=== PATIENT | male | born 1995 | race Caucasian/White ===

== ENCOUNTER 2023-10-11 13:30 | Outpatient (AMB) | payer BC, SELFPAY ==
[2023-10-11 13:31] VITALS: BP 118/82; PULSE 62; O2SAT 99; BMI 20.9
--- NOTE | 2023-10-11 13:31 | MHC.PC.OV ---
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 Allergies No Known Allergies Allergy (Verified 10/11/23 13:31) Medication List - Last Reconciled 10/11/23 by Radha Augustine MD ashsarahidha root extract mg PO BID cholecalciferol (vitamin D3) 10 mcg PO DAILY multivitamin 1 tab PO DAILY Tobacco use date assessed: 10/11/23 Dental Screening Dental Screen Date: 10/11/23 Did you have a dental visit in the last 12 months?: Yes Did you have a dental problem in the last 6 months where you did not have access to dental care?: No Was dental information given to patient?: Patient has dentist HPI 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 feeling anxious a lot. asking for beta blockers for performance anxiety. problem with winter anxiety PFSH Family History (Updated 10/11/23 @ 14:08 by Radha Augustine MD) Maternal Grandfather Pancreatic cancer Social History (Updated 10/11/23 @ 14:08 by Radha Augustine MD) Housing: House Alcohol intake: current Comment: 2x a week 1 beer Patient Tobacco Use Status: Never used Tobacco service: No Current occupational status: employed Cognitive needs: No Hearing needs: No Vision needs: No Questionnaire PHQ-9 Over the last 2 weeks, how often have you been bothered by any of the following problems? 1. Little interest or pleasure in doing things: not at all 2. Feeling down, depressed, or hopeless: several days 3. Trouble falling or staying asleep, or sleeping too much: not at all 4. Feeling tired or having little energy: several days 5. Poor appetite or overeating: not at all 6. Feeling bad about yourself - or that you are a failure or have let yourself or your family down: several days 7. Trouble concentrating on things, such as reading the newspaper or watching television: not at all 8. Moving or speaking so slowly that other people could have noticed. Or the opposite - being so fidgety or restless that you have been moving around a lot more than usual: not at all 9. Thoughts that you would be better off or of hurting yourself in some way: not at all Total score: 3 Depression Screening Interpretation: Positive Depression Screening Done: Yes Source: Developed by Drs. Javi Cárdenas, Eemly Walker, Laurent Marie and colleagues, with an educational jose from [employer]. Thrive Questionnaire Date Thrive assessed: 10/11/23 I am a: Patient What is your living situation today?: I have a steady place to live Within the past 12 months, did the food you bought not last and you didn't have the money to get more?: Never true Within the past 12 months, did you worry whether your food would run out before you got money to buy more?: Never true Do you have trouble paying for medicines?: No Do you have trouble getting transportation to medical appointments?: No Do you have trouble paying your heating and electricity bill?: No Do you have trouble taking care of your child, family member or friend?: No Do you have trouble with day-to-day activities such as bathing, preparing meals, shopping, managing finances, etc.?: No Are you currently unemployed and looking for a job?: No Are you interested in more education?: No Please select the resources that you would like help with: None THRIVE Score: 0 AUDIT C Alcohol Use Questionnaire (AUDIT-C) 1. How often do you have a drink containing alcohol?: 2-4 times a month 2. How many drinks containing alcohol do you have on a typical day when you are drinking?: 1 or 2 3. How often do you have six or more drinks on one occasion?: Never Total Score: 2 TITA-7 AMB Questionnaire TITA-7 Date TITA - 7 assessed: 10/11/23 Feeling nervous, anxious, or on edge: 1 = Several days Not being able to stop or control worryin = Several days Worrying too much about different things: 1 = Several days Trouble relaxin = Several days Being so restless that it is hard to sit still: 1 = Several days Becoming easily annoyed or irritable: 1 = Several days Feeling afraid as if something awful might happen: 1 = Several days Total TITA-7 score (0-4 normal; 5-9 mild; 10-14 moderate; 15-21 severe): 7 Source: Developed by Drs. Javi Cárdenas, Emely Walker, Laurent Marie and colleagues, with an educational jose from [employer]. Physical exam (Primary Care) Vital Signs: Last Vital Signs Pulse 62 10/11/23 13:31 BP 118/82 10/11/23 13:31 Pulse Ox 99 10/11/23 13:31 Oxygen Delivery Method Room Air 10/11/23 13:31 BMI result Body Mass Index 20.9 Tobacco/Smoking Status: Tobacco use Status Tobacco use date assessed 10/11/23 10/11/23 13:32 Patient Tobacco Use Status Never used Tobacco 10/11/23 13:32 PHQ-9: PHQ-9 Score PHQ-9: Total score 3 10/11/23 13:43 Depression Screening Interpretation: Positive Thrive Assessment: Date of Thrive Assessment Date Thrive assessed 10/11/23 10/11/23 13:32 Const General: alert; No acute distress Eyes Conjunctivae: conjunctivae normal Resp Auscultation: clear to auscultation bilaterally Cardio Rate: regular rate Rhythm: regular rhythm GI Inspection: Yes normal to inspection Extrem General: Yes normal to inspection and No edema Office Procedures Flu Questionnaire Does the patient have a severe egg allergy?: No Does the patient have severe life threatening allergies?: No Does the patient have a fever or illness today?: No Has the patient ever had Guillain-[place] Syndrome?: No Has the patient ever had any past reaction to a flu shot?: No Immunizations flu vacc [id number] 6mos up(PF) 60 mcg(15 mcgx4)/0.5 mL IM syringe Performing Provider: Radha Augustine MD [facility] Administered by: DANA Cao on 10/11/23 13:49 Dose Route Admin Location Dispensed Lot Number Expiration Date [employer] Attendant 0.5 mL IM Left Deltoid 0.5 mL [id number] 10/11/23 83435-120-31 [employer] VIS Given Date VIS Provided VIS Publication Date 10/11/23 Single Vaccine 21 Eligibility Eligibility Date Funding Source Not VFC Eligible 10/11/23 Private Assessment and Plan Assessment & Plan (1) Social anxiety disorder: Code(s): F40.10 - Social phobia, unspecified Plan: Propranolol medication sent in and discussed about side effects to monitor. (2) Alopecia: Code(s): L65.9 - Nonscarring hair loss, unspecified Plan: Blood work requested and referral to dermatology done. (3) Seasonal affective disorder: Code(s): F33.8 - Other recurrent depressive disorders Plan: Blood work requested and discussed about options. Light therapy, counseling and medication Orders: Orders Thyroid Stimulating Hormone Today F40.10 - Social phobia, unspecified Influenza [id number] Immunization Today Z23 - Encounter for immunization Complete Blood Count Auto Diff Today F40.10 - Social phobia, unspecified Comprehensive Met. Panel Today F40.10 - Social phobia, unspecified Free T4 (Free Thyroxine) Today F40.10 - Social phobia, unspecified Lipid Panel Today E78.00 - Pure hypercholesterolemia, unspecified, F40.10 - Social phobia, unspecified Vitamin B12 and Folate Today F40.10 - Social phobia, unspecified Magnesium Today F40.10 - Social phobia, unspecified Erythrocyte Sedimentation Rate Today F40.10 - Social phobia, unspecified C Reactive Protein Today F40.10 - Social phobia, unspecified Referrals Dermatology Referral L65.9 - Nonscarring hair loss, unspecified Medications: New propranolol 10 mg PO .QD PRN 20 tabs 1RF anxiety F40.10 - Social phobia, unspecified Coding Level of Care Code New Pt Level 4 (86831) Diagnoses Social anxiety disorder F40.10 Alopecia L65.9 Seasonal affective disorder F33.8
== END 2023-10-11 14:39 | disposition home or self-care (01) ==
PROVIDERS: PCP Internal Medicine; Visit Provider Internal Medicine
DX: Z23 Encounter for immunization (principal); L65.9 Nonscarring hair loss, unspecified; F40.10 Social phobia, unspecified; F33.8 Other recurrent depressive disorders
CPT/HCPCS: 90471; 90686; 99204

== ENCOUNTER 2023-12-10 10:06 | Outpatient (REF) | payer BC, SELFPAY ==
[2023-12-10 10:28] LABS: MANUAL DIFF FLAG NO
[2023-12-10 10:43] LABS: Basophils Percent Auto 0.4 % (0-2); Eosinophils Absolute Auto 0.1 X10*3/uL (0.0-0.4); Eosinophils Percent Auto 2.8 % (0-4); Hematocrit 41.1 % (42.0-52.0); Hemoglobin 14.3 g/dl (14.0-18.0); Imm Gran Abs Auto 0.01 X10*3/uL (0.00-0.03); Imm Gran Pct Auto 0.2 % (0.0-0.4); Lymphocytes Absolute Auto 1.8 X10*3/uL (1.2-4.9); Lymphocytes Percent Auto 35.7 % (20-40); Mean Corpuscular HGB Conc 34.8 g/dl (31.0-36.0); Mean Corpuscular Hemoglobin 30.7 pg (27.0-33.0); Mean Corpuscular Volume 88.2 fL (80.0-98.0); Monocytes Absolute Auto 0.5 X10*3/uL (0.1-1.2); Monocytes Percent Auto 10.1 % (2-11); Neutrophils Absolute Auto 2.6 x10*3/uL (2.0-8.3); Neutrophils Percent Auto 50.8 % (45-73); Platelet Count 197 X10*3/uL (160-400); Red Blood Count 4.66 X10*6/uL (4.60-5.80); Red Cell Distribution Width 12.7 % (11.0-16.0)
[2023-12-10 11:26] LABS: Alanine Aminotransferase 16 U/L (0-40); Albumin Level 4.8 g/dL (3.5-5.0); Alkaline Phosphatase 39 U/L (39-117); Anion Gap 13 (12-20); Aspartate Amino Transferase 18 U/L (5-37); Bilirubin Total 0.8 mg/dL (0.0-1.0); Blood Urea Nitrogen 11 mg/dL (9-16); C Reactive Protein < 0.10 mg/dL (< or = 0.50); Calcium 9.6 mg/dL (8.4-10.2); Carbon Dioxide 27 mmol/L (22-29); Chloride 102 mmol/L (96-108); Cholesterol 180 mg/dL (<200); Estimated Glomerular Filt Rate > 60; Glucose Random 88 mg/dL (60-115); HDL Cholesterol 67 mg/dL (>40); LDL Cholesterol Calculated 103 mg/dL (<100); Magnesium 2.2 mg/dL (1.6-2.6); Potassium 4.1 mmol/L (3.3-5.1); Sodium 138 mmol/L (135-145); Total Protein 7.5 g/dL (6.5-8.0); Triglycerides 52 mg/dL (<150)
[2023-12-10 11:27] LABS: Erythrocyte Sedimentation Rate 1 MM/HR (0-15)
[2023-12-10 11:31] LABS: Free T4 (Free Thyroxine) 1.06 ng/dL (0.71-1.85); Thyroid Stimulating Hormone 1.09 uIU/mL (0.32-4.0)
[2023-12-10 11:40] LABS: Folate 14.1 ng/mL (> or = 4.0); Vitamin B12 957 pg/mL (200-900)
== END 2023-12-10 10:07 | disposition home or self-care (01) ==
LOC: HO.LAB 10:06
PROVIDERS: PCP Internal Medicine; Visit Provider Internal Medicine
DX: F40.10 Social phobia, unspecified (principal); E78.00 Pure hypercholesterolemia, unspecified
CPT/HCPCS: 36415; 80053; 80061; 82607; 82746; 83735; 84439; 84443; 85025; 85652; 86140

== ENCOUNTER 2023-12-23 14:45 | Outpatient (AMB) | payer BC, SELFPAY ==
[2023-12-23 14:47] VITALS: BP 108/66; PULSE 59; O2SAT 98; BMI 20.4
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
== END 2023-12-23 16:19 | disposition home or self-care (01) ==
PROVIDERS: PCP Internal Medicine; Visit Provider Internal Medicine
DX: Z00.00 Encounter for general adult medical examination without abnormal findings (principal); F40.10 Social phobia, unspecified; M54.50 Low back pain, unspecified
CPT/HCPCS: 99395

== ENCOUNTER 2023-12-23 16:29 | Outpatient (REF) | payer BC, SELFPAY ==
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
== END 2023-12-23 16:30 | disposition home or self-care (01) ==
LOC: HO.XRAY 16:29
PROVIDERS: PCP Internal Medicine; Visit Provider Internal Medicine
DX: M54.50 Low back pain, unspecified (principal)
CPT/HCPCS: 72100; 72200

== ENCOUNTER 2024-08-02 10:00 | Outpatient (REF) | payer BC, SELFPAY ==
--- NOTE | ~2024-08-02 | XR_ITS ---
EXAMINATION: XR CHEST CLINICAL INFORMATION: Pneumonia unspecified COMPARISON: None available. TECHNIQUE: 2 views of the chest were obtained. FINDINGS: Lungs clear. No pleural effusions. Heart and pulmonary vessels normal. XR/XR chest 2V IMPRESSION: No active disease. Electronically signed by: Sanjay Bermudez MD 08/02/2024 12:08 PM [facility]
== END 2024-08-02 10:01 | disposition home or self-care (01) ==
LOC: HO.XRAY 10:00
PROVIDERS: PCP Internal Medicine; Visit Provider Internal Medicine
DX: J18.9 Pneumonia, unspecified organism (principal)
CPT/HCPCS: 71046

== ENCOUNTER 2024-12-26 16:19 | Outpatient (AMB) | payer BC, SELFPAY ==
[2024-12-26 16:45] VITALS: BP 106/66; PULSE 65; RESP 20; TEMP 36.4; O2SAT 98; BMI 20.8
--- NOTE | 2024-12-26 16:45 | MHC.PC.OV ---
Vital Signs 12/26/24 16:45 Height 6 ft 2 in Weight 161 lb 12.8 oz BMI 20.8 BP 106/66 Blood Pressure Location Lt brachial Position Sitting Respiration 20 Pulse 65 Pulse Source Pulse Oximeter Temp 97.5 F Temp Source Temporal Artery Scan Pulse Oximetry (%) 98 Oxygen Delivery Method Room Air Intake Visit Reasons: Annual Exam Mold Dresser Required: No Accompanied by: Self / Same As Patient Allergies No Known Allergies Allergy (Verified 12/26/24 16:48) Medication List - Last Reconciled 12/26/24 by Radha Augustine MD ashwagandha root extract mg PO BID cholecalciferol (vitamin D3) 10 mcg PO DAILY multivitamin 1 tab PO DAILY propranolol 10 mg PO DAILY PRN Tobacco use date assessed: 12/26/24 Dental Screening Dental Screen Date: 12/26/24 Did you have a dental visit in the last 12 months?: Yes Did you have a dental problem in the last 6 months where you did not have access to dental care?: No Was dental information given to patient?: Patient has dentist [facility] Surgical History (Updated 12/26/24 @ 16:50 by Krupa Goldman CMA) No pertinent past surgical history Family History (Updated 12/26/24 @ 16:52 by Krupa Goldman CMA) Maternal Grandfather Pancreatic cancer Maternal Aunt Lung cancer Mother History of hip replacement Pinched cervical nerve root Father Obese Social History (Updated 12/26/24 @ 17:19 by Radha Augustine MD) Housing: House Alcohol intake: current Comment: 1x a week 1 beer Patient Tobacco Use Status: Never used Tobacco e-Cigarette/Vaping Use: Never Used service: No Current occupational status: employed Cognitive needs: No Hearing needs: No Vision needs: Yes (Glasses) Questionnaire PHQ-9 Over the last 2 weeks, how often have you been bothered by any of the following problems? 1. Little interest or pleasure in doing things: not at all 2. Feeling down, depressed, or hopeless: not at all 3. Trouble falling or staying asleep, or sleeping too much: not at all 4. Feeling tired or having little energy: several days 5. Poor appetite or overeating: not at all 6. Feeling bad about yourself - or that you are a failure or have let yourself or your family down: not at all 7. Trouble concentrating on things, such as reading the newspaper or watching television: not at all 8. Moving or speaking so slowly that other people could have noticed. Or the opposite - being so fidgety or restless that you have been moving around a lot more than usual: not at all 9. Thoughts that you would be better off or of hurting yourself in some way: not at all Total score: 1 Depression Screening Interpretation: Negative Depression Screening Done: Yes 44548 - PHQ-9 Billing: Yes Source: Developed by Drs. Javi Cárdenas, Emely Walker, Laurent Marie and colleagues, with an educational jose from [employer]. Thrive Questionnaire Date Thrive assessed: 12/26/24 I am a: Patient What is your living situation today?: I have a steady place to live Within the past 12 months, did the food you bought not last and you didn't have the money to get more?: Never true Within the past 12 months, did you worry whether your food would run out before you got money to buy more?: Never true Do you have trouble paying for medicines?: No Do you have trouble getting transportation to medical appointments?: No Do you have trouble paying your heating and electricity bill?: No Do you have trouble taking care of your child, family member or friend?: No Do you have trouble with day-to-day activities such as bathing, preparing meals, shopping, managing finances, etc.?: No Are you currently unemployed and looking for a job?: No Are you interested in more education?: No Please select the resources that you would like help with: None Currently or been in a relationship where the following occur: No concerns reported THRIVE Score: 0 AUDIT C Alcohol Use Questionnaire (AUDIT-C) 1. How often do you have a drink containing alcohol?: 2-4 times a month 2. How many drinks containing alcohol do you have on a typical day when you are drinking?: 1 or 2 3. How often do you have six or more drinks on one occasion?: Never Total Score: 2 Score Reviewed/Action Taken: Yes TITA-7 AMB Questionnaire TITA-7 Date TITA - 7 assessed: 12/26/24 Feeling nervous, anxious, or on edge: 1 = Several days Not being able to stop or control worryin = Not at all Worrying too much about different things: 1 = Several days Trouble relaxin = Not at all Being so restless that it is hard to sit still: 0 = Not at all Becoming easily annoyed or irritable: 1 = Several days Feeling afraid as if something awful might happen: 0 = Not at all Total TITA-7 score (0-4 normal; 5-9 mild; 10-14 moderate; 15-21 severe): 3 Source: Developed by Drs. Javi Cárdenas, Emely Walker, Laurent Marie and colleagues, with an educational jose from [employer]. TITA-7 Assessment Billing TITA-7 Assessment Tool: TITA-7 Assessment 34605 Review of Systems Const Denies poor appetite and Denies weakness Eyes Denies no additional complaints ENT Reports Normal hearing present, Denies dizziness, Denies nasal congestion, Denies tinnitus and Denies sore throat Card Denies chest pain, Denies syncope, Denies rapid heart rate and Denies dyspnea Resp Denies cough and Denies dyspnea GI Denies change in stool character, Reports constipation, Denies diarrhea, Denies nausea and Denies vomiting Denies dysuria and Denies urinary frequency Neuro Reports Normal hearing present, Denies confusion, Denies dizziness, Denies syncope and Denies weakness Psych Denies confusion Physical exam (Primary Care) Vital Signs: Last Vital Signs Temp 97.5 F 12/26/24 16:45 Pulse 65 12/26/24 16:45 Resp 20 12/26/24 16:45 BP 106/66 12/26/24 16:45 Pulse Ox 98 12/26/24 16:45 Oxygen Delivery Method Room Air 12/26/24 16:45 BMI result Body Mass Index 20.8 Tobacco/Smoking Status: Tobacco use Status Tobacco use date assessed 12/26/24 12/26/24 16:55 Patient Tobacco Use Status Never used Tobacco 12/26/24 17:19 e-Cigarette/Vaping Use Never Used 12/26/24 17:19 PHQ-9: PHQ-9 Score PHQ-9: Total score 1 12/26/24 17:17 Depression Screening Interpretation: Negative Thrive Assessment: Date of Thrive Assessment Date Thrive assessed 12/26/24 12/26/24 16:55 Currently or been in a relationship where the following occur: No concerns reported Const General: No confusion Orientation/consciousness: No confusion HENMT Head: Yes normocephalic Ears: external ears normal and TM's normal bilaterally Face and sinus: Yes normal facial exam Face images: 1. mild erythematous rash with scaliness 2 cm by 1 cm R upper lid Mouth: moist mucous membranes Throat: Yes tonsils normal Eyes Conjunctivae: conjunctivae normal Pupils: Equal, round and reactive pupils present and Pupil accommodation reflex normal Direct Ophthalmoscopy: normal light reflex Neck Neck: No lymphadenopathy Thyroid: Thyroid normal Chest Chest palpation & inspection: normal inspection of the chest Resp Effort & Inspection: normal respiratory effort and no audible wheezes Auscultation: clear to auscultation bilaterally, no crackles, no wheezes and lung sounds not diminished Cardio Rate: regular rate Rhythm: regular rhythm Peripheral pulses: radial pulses present and dorsalis pedis present GI Other: Visual exam normal Palpation (GI): no masses Auscultation: normal bowel sounds and normoactive bowel sounds Rectal Exam - Male: Yes deferred Male General Exam: Yes normal external exam Skin General skin exam: no rashes or lesions noted Rashes: no rashes Neuro General: No confusion Cranial nerves: Yes Equal, round and reactive pupils present and Yes Normal hearing present Cognition (Neuro): normal cognition Gait exam (Neuro): Normal gait present Motor exam (neuro): 5/5 motor strength present throughout Deep tendon reflexes (DTR's): Right brachioradialis reflex intensity grade: 2+, Left brachioradialis reflex intensity grade: 2+, Right patellar reflex intensity grade: 2+ and Left patellar reflex intensity grade: 2+ Extrem General: No edema Coding Level of Care Code Est Pt Prev Care 18-39y(40088) Diagnoses Annual physical exam Z00.00 Social anxiety disorder F40.10 Nail dystrophy L60.3 Eczema L30.9 Additional Codes TITA-7 Assessment Billing - TITA-7 Assessment Tool: TITA-7 Assessment 45718 ([id number]) PHQ-9 - 98961 - PHQ-9 Billing: Yes ([id number]) Assessment & Plan Assessment & Plan (1) Annual physical exam: Code(s): Z00.00 - Encounter for general adult medical examination without abnormal findings Category: Medical Plan: Patient is advised to eat healthy, keep well hydrated, keep active and have adequate sleep. (2) Social anxiety disorder: Code(s): F40.10 - Social phobia, unspecified Category: Medical Plan: Continue with present medication (3) Nail dystrophy: Code(s): L60.3 - Nail dystrophy Category: Medical (4) Eczema: Comment: R upper lid Code(s): L30.9 - Dermatitis, unspecified Category: Medical Plan History of Present Illness The patient is a 29-year-old male presenting for a wellness examination and evaluation of dermatological concerns. He has a history of resolved right lower lobe pneumonia, confirmed cleared on follow-up imaging. The patient reports recent development of nail dystrophy and eczema with the latter being notably itchy and flaky. He describes these dermatological symptoms recently developing and persisting despite [id number] treatments. Additionally, periodic stress-induced headaches arise from professional responsibilities, but sleep isn't compromised according to the patient. Previous blood tests in November 2023 indicated generally normal findings, though cholesterol was elevated. Health Maintenance - Last blood work in November 2023 showed normal blood count, electrolytes, renal and liver function. - Elevated cholesterol level noted. - Regular vitamin D and multivitamins reported. - Lifestyle discussion focused on stress management and maintaining physical activity. Social History - Consumes alcohol about once a week, typically one beer. - Denies smoking and recreational drug use. 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 - Reports difficulty finding time for exercise due to work commitments. - Family history of pancreatic and lung cancer. Review of Systems - Skin: Reports new eczema around the eye; no other rashes. - Neurologic: Reports frequent stress-induced headaches. - ENT: Denies dizziness, hearing difficulties, or chronic respiratory discomfort. - Cardiac: Denies chest pain, shortness of breath, or other cardiac symptoms. - GI: Normal bowel movements; denies issues with urination or swallowing. - General: No recent fever aside from previous pneumonia episode. Physical Exam General: Cooperative, healthy appearing, comfortable, no acute distress and well developed Orientation: Patient oriented x3 Limitations: No limitations Head: Normal to inspection Ears: Hearing grossly normal bilaterally Nose: Normal external nose present Face and sinus: Normal facial exam Eyes: Appearance normal, both eyes and all related structures, eczema noted around the eye Neck: Normal visual inspection and Yes full ROM Respiratory: Normal respiratory effort and able to speak in complete sentences. Clear to auscultation bilaterally Cardiovascular: Regular rate and rhythm. Normal S1 and S2 GI: Normal to inspection. Soft to palpation and nontender Skin: Eczema noted around the eye, no other rashes or lesions noted Neuro: Patient oriented x3 Extremities: Normal to inspection, nail dystrophy noted on one fingernail Results - Labs: Previous blood tests in November showed normal thyroid, blood count, electrolytes, renal and liver function; elevated cholesterol. - Imaging: Previous chest X-ray negative as of follow-up; prior lumbar spine X-rays unremarkable. Plan Prescribed a weak topical steroid for eczema and sought dermatology consultation for further evaluation of skin and nail presentations. Medications include propranolol for situational anxiety, with refills placed. Organized follow-up blood work to assess inflammatory factors. Emphasized importance of stress management for headaches and maintaining a balanced lifestyle with regular exercise and nutrition. Referral services to [place] [facility] are in progress. Patient was informed and verbally consented to the use of an ambient scribe for clinic note documentation during this visit. Discussion Notes I discussed with the patient the management of his eczema using a topical steroid cream and arranged a dermatology referral to further investigate his dermatological conditions. Explanation was provided regarding the use and application of the cream, as well as the expectations of eczema recurrence. 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 Consideration for potential autoimmune factors was addressed with the decision to test for inflammatory markers. Talked through the patient's lifestyle, focusing on stress mitigation and the importance of balancing work with sufficient rest and exercise. The prospective collaboration with dermatology was highlighted, ensuring the patient is aware of the follow-up process. Patient Instructions - Apply the prescribed topical steroid cream to the affected area as instructed, avoiding the eye vicinity directly. - Attend the dermatology referral appointment for comprehensive skin and nail evaluation. - Continue taking prescribed medication (propranolol) as needed for anxiety. - Incorporate stress management techniques; prioritize balanced rest and exercise. - Follow up with blood tests as recommended for further assessment. - Seek medical attention should eczema worsens or should there be any notable new symptoms. - Contact if no follow-up by dermatology within a couple of weeks. - Maintain a healthy diet, reduce alcohol intake, and exercise regularly. Orders: Orders Complete Blood Count Auto Diff Today L60.3 - Nail dystrophy Vitamin B12 and Folate Today L60.3 - Nail dystrophy Lipid Panel Today E78.00 - Pure hypercholesterolemia, unspecified, L60.3 - Nail dystrophy Erythrocyte Sedimentation Rate Today L60.3 - Nail dystrophy C Reactive Protein Today L60.3 - Nail dystrophy Thyroid Stimulating Hormone Today L60.3 - Nail dystrophy Free T4 (Free Thyroxine) Today L60.3 - Nail dystrophy Comprehensive Met. Panel Today L60.3 - Nail dystrophy Ferritin Today L60.3 - Nail dystrophy Referrals Dermatology Referral L30.9 - Dermatitis, unspecified, L60.3 - Nail dystrophy Medications: New propranolol 10 mg PO DAILY PRN 30 tabs 0RF anxiety F40.10 - Social phobia, unspecified alclometasone 0.05% 1 appl topical BID PRN 15 grams 0RF itching 7 days L30.9 - Dermatitis, unspecified
--- OUTSIDE RECORDS SUMMARY | 2024-12-26 18:59 | XMS_ITS | Encounter Summary ---
Author Organization [facility] Address [address] [place] [address] Phone Care Team Providers Care Tread Tuber Machine Operator Name Role Phone Brandie Huang MD Primary Care Provider [phone]- [phone] Encounter Details Date Type Department Care Team (Late st Contact Info) Description 12/02/2012 Documentation [facility] [place] Family Medicine [address] [place] [address] Family Medicine, Physician [address] [place] [address] Social History Tobacco Use Types Packs/Day Years Used Date Smoking Tobacco: Never Assessed Sex and Gender Information Value Date Recorded Sex Assigned at Not on file Legal Sex Male 5:07 PM EDT Gender Identity Not on file Sexual Orientation Straight 05/05/2019 3: 33 PM EDT documented as of this encounter Plan of Treatment Not on file documented as of this encounter Visit Diagnoses Not on filedocumented in this encounter Care Teams Tread Tuber Machine Operator Relationship Specialty Start Date End Date Brandie Huang MD [address] [place] [address] [place] [address] PCP - General 04/30/17 11/12/22 documented as of this encounter
--- OUTSIDE RECORDS SUMMARY | 2024-12-26 18:59 | XMS_ITS | Encounter Summary ---
Author Organization [facility] Address [address] [place] [address] Phone Care Team Providers Care Piper Helper Name Role Phone Brandie Huang MD Primary Care Provider [phone]- [phone] Encounter Details Date Type Department Care Team (Late st Contact Info) Description 12/02/2012 Documentation [facility] [place] Family Medicine [address] [place] [address] Family Medicine, Physician [address] [place] [address] Social History Tobacco Use Types Packs/Day Years [...] on filedocumented in this encounter Care Teams Piper Helper Relationship Specialty Start Date End Date Brandie Huang MD [address] [place] [address] [place] [address] PCP - General 04/30/17 11/12/22 documented as of this encounter
--- OUTSIDE RECORDS SUMMARY | 2024-12-26 18:59 | XMS_ITS | Encounter Summary ---
Author Organization [facility] Address [address] [place] [address] Phone Care Team Providers Care Cushion Installer Name Role Phone Brandie Huang MD Primary Care Provider [phone]- [phone] Encounter Details Date Type Department Care Team (Late st Contact Info) Description 12/27/2014 [place] [facility] [place] [address] [place] [address] Family Medicine, Physician [address] [place] [address] Social History Tobacco Use Types Packs/Day Years [...] on filedocumented in this encounter Care Teams Cushion Installer Relationship Specialty Start Date End Date Brandie Huang MD [address] [place] [address] [place] [address] PCP - General 04/30/17 11/12/22 documented as of this encounter
--- OUTSIDE RECORDS SUMMARY | 2024-12-26 18:59 | XMS_ITS | Encounter Summary ---
Author Organization [facility] Address [address] [place] [address] Phone Care Team Providers Care Instrument Technician Name Role Phone Brandie Huang MD Primary Care Provider [phone]- [phone] Encounter Details Date Type Department Care Team (Late st Contact Info) Description 02/27/2016 Documentation [facility] [place] [address] [place] [address] Family Medicine, Physician [address] [place] [address] Social History Tobacco Use Types Packs/Day Years Used Date Smoking Tobacco: Never Comments:Never smoker Sex and Gender Information Value Date Recorded Sex Assigned at Not on file Legal Sex Male 5:07 PM EDT Gender Identity Not on file Sexual Orientation Straight 05/05/2019 3: 33 PM EDT documented as of this encounter Plan of Treatment Not on file documented as of this encounter Visit Diagnoses Not on filedocumented in this encounter Care Teams Instrument Technician Relationship Specialty Start Date End Date Brandie Huang MD [address] [place] [address] [place] [address] PCP - General 04/30/17 11/12/22 documented as of this encounter
--- OUTSIDE RECORDS SUMMARY | 2024-12-26 18:59 | XMS_ITS | Encounter Summary ---
Author Organization [facility] Address [address] [place] [address] Phone Care Team Providers Care Automobile Spring Repairer Name Role Phone Brandie Huang MD Primary Care Provider [phone]- [phone] Encounter Details Date Type Department Care Team (Late st Contact Info) Description 09/22/2011 [place] [facility] [place] [address] [place] [address] Family Medicine, Physician [address] [place] [address] Social History Tobacco Use Types Packs/Day Years [...] on filedocumented in this encounter Care Teams Automobile Spring Repairer Relationship Specialty Start Date End Date Brandie Huang MD [address] [place] [address] [place] [address] PCP - General 04/30/17 11/12/22 documented as of this encounter
--- OUTSIDE RECORDS SUMMARY | 2024-12-26 18:59 | XMS_ITS | Encounter Summary ---
Author Organization [facility] Address [address] [place] [address] Phone Care Team Providers Care Automobile Damage Field Appraiser Name Role Phone Brandie Huang MD Primary Care Provider [phone]- [phone] Encounter Details Date Type Department Care Team (Late st Contact Info) Description 12/27/2014 Documentation [facility] [place] Family Medicine [address] [place] [address] Family Medicine, Physician [address] [place] [address] Social History Tobacco Use Types Packs/Day Years [...] filedocumented in this encounter Care Teams Automobile Damage Field Appraiser Relationship Specialty Start Date End Date Brandie Huang MD [address] [place] [address] [place] [address] PCP - General 04/30/17 11/12/22 documented as of this encounter
--- OUTSIDE RECORDS SUMMARY | 2024-12-26 18:59 | XMS_ITS | Encounter Summary ---
Author Organization [facility] Address [address] [place] [address] Phone Care Team Providers Care Inventory Assistant Name Role Phone Brandie Huang MD Primary Care Provider [phone]- [phone] Encounter Details Date Type Department Care Team (Late st Contact Info) Description 09/22/2011 Documentation [facility] [place] Family Medicine [address] [place] [address] Family Medicine, Physician [address] [place] [address] Social History Tobacco Use Types Packs/Day Years [...] on filedocumented in this encounter Care Teams Inventory Assistant Relationship Specialty Start Date End Date Brandie Huang MD [address] [place] [address] [place] [address] PCP - General 04/30/17 11/12/22 documented as of this encounter
--- OUTSIDE RECORDS SUMMARY | 2024-12-26 18:59 | XMS_ITS | Encounter Summary ---
Author Organization [facility] Address [address] [place] [address] Phone Care Team Providers Care Sole Inker Name Role Phone Brandie Huang MD Primary Care Provider [phone]- [phone] Encounter Details Date Type Department Care Team (Late st Contact Info) Description 12/02/2012 Documentation [facility] [place] Family Medicine [address] [place] [address] Family Medicine, Physician [address] [place] [address] Social History Tobacco Use Types Packs/Day Years [...] on filedocumented in this encounter Care Teams Sole Inker Relationship Specialty Start Date End Date Brandie Huang MD [address] [place] [address] [place] [address] PCP - General 04/30/17 11/12/22 documented as of this encounter
--- OUTSIDE RECORDS SUMMARY | 2024-12-26 18:59 | XMS_ITS | Encounter Summary ---
Author Organization [facility] Address [address] [place] [address] Phone Care Team Providers Care Planning Lead Name Role Phone Brandie Huang MD Primary Care Provider [phone]- [phone] Encounter Details Date Type Department Care Team (Late st Contact Info) Description 12/02/2012 Documentation [facility] [place] Family Medicine [address] [place] [address] Family Medicine, Physician [address] [place] [address] Social History Tobacco Use Types Packs/Day Years [...] on filedocumented in this encounter Care Teams Planning Lead Relationship Specialty Start Date End Date Brandie Huang MD [address] [place] [address] [place] [address] PCP - General 04/30/17 11/12/22 documented as of this encounter
--- OUTSIDE RECORDS SUMMARY | 2024-12-26 18:59 | XMS_ITS | Encounter Summary ---
Author Organization [facility] Address [address] [place] [address] Phone Care Team Providers Care Cable Installer Repairer Name Role Phone Brandie Huang MD Primary Care Provider [phone]- [phone] Encounter Details Date Type Department Care Team (Late st Contact Info) Description 12/27/2014 Documentation [facility] [place] Family Medicine [address] [place] [address] Family Medicine, Physician [address] [place] [address] Social History Tobacco Use Types Packs/Day Years [...] on filedocumented in this encounter Care Teams Cable Installer Repairer Relationship Specialty Start Date End Date Brandie Huang MD [address] [place] [address] [place] [address] PCP - General 04/30/17 11/12/22 documented as of this encounter
--- OUTSIDE RECORDS SUMMARY | 2024-12-26 18:59 | XMS_ITS | Continuity of Care Document ---
Author Name [facility] Organization [facility] Care Team Providers Care Rodent Exterminator Name Role Phone [facility] Unavailable Unavailable Vital Signs Combined list of inpatient and outpatient Vital Signs from Department of [facility] and [facility], ranging from 12 months to all on record, depending upon the facility. Vital Sign Value Date Comments Source Peripheral Pulse Rate 84 bpm 04/20/2024 10:55:[address] [place] [address] Systolic Blood Pressure 116 mm[Hg] 04/20/2024 10:55:[address] [place] [address] Diastolic Blood Pressure 67 mm[Hg] 04/20/2024 10:55:[address] [place] [address] Encounters Combined list of: 1) Encounters from [facility] facilities going backup to the last 18 months, not all [place] inpatient encounters are included; 2) Encounters from the [facility] facilities going backup to 280 months. Location Location Details Encounter Type Encounter Number Reason For Visit Attending Provider ADM Date DC Date Status Disposition Source Ambulator y Pharmacy Lifetime Pharmacy [id number] 03/27 [facility] Outside Documentat [facility] Only [id number] 03/27 Discharge Disposition: Home or Self Care [facility] [facility] [place] Readiness [id number] 03/28 Discharge Disposition: ADMIN [facility] [facility] [place] Readiness [id number] 04/20 Discharge Disposition: Home or Self Care [facility] Procedures Combined list of: 1) Procedures from [facility] facilities going back up to thelast 18 months, not all [place] non-surgical procedures are included; 2) All procedures from the Department [facility] facilities. Procedure Procedure Type Code Date Perfomer Comments Sourc e No data available for this section Ambulatory P harmacy Social History Combined list of available smoking, tobacco, and other social history from [facility] facilities. Social History Type Response Date Comment [facility] e Sexual Orientation Ambula tory Pharmacy Gender identity Ambulator y Pharmacy Sex Representation Male (finding) Un known Organization Assessment and Plan Combined list of future care activities from [facility] facilities (e.g., assessment and plan notes, appointments, orders, and referrals). Additional future care activities may be listed in the Plan of Care section. Result Assessment and Plan Date Source Assessment and Plan Extracted from:Title : Education Note Author: ISABEL ROCA Date: 04/20/24 12/26/[address] [place] [address] Functional Status Combined list of recent functional and cognitive assessments recorded at [facility] Functional [place] Measurement (FIM) Scale: 1 = Total Assistance (Subject = 0% +), 2 = Maximal Assistance (Subject = 25% +), 3 = Moderate Assistance (Subject = 50% +), 4 = Minimal Assistance (Subject = 75% +), 5 = Supervision, 6 = Modified [place] (Device), 7 = Complete [place] (Timely, Safely). Assessment Date/Time Source Assessment Type Assessment Skill Assessment Score Assessment Details No data available for this section
--- OUTSIDE RECORDS SUMMARY | 2024-12-26 18:59 | XMS_ITS | Encounter Summary ---
Author Organization [facility] Address [address] [place] [address] Phone Care Team Providers Care Follow Up Rep Name Role Phone Brandie Huang MD Primary Care Provider +1- [phone] Encounter Details Date Type Department Care Team (Late st Contact Info) Description 07/15/2012 Documentation [facility] [place] Family Medicine [address] [place] [address] Family Medicine, Physician [address] [place] [address] Social History Tobacco Use Types Packs/Day Years [...] on filedocumented in this encounter Care Teams Follow Up Rep Relationship Specialty Start Date End Date Brandie Huang MD [address] [place] [address] [place] [address] PCP - General 04/30/17 11/12/22 documented as of this encounter
--- OUTSIDE RECORDS SUMMARY | 2024-12-26 18:59 | XMS_ITS | Encounter Summary ---
Author Organization [facility] Address [address] [place] [address] Phone Care Team Providers Care Business Support Manager Name Role Phone Brandie Huang MD Primary Care Provider +1- [phone] Encounter Details Date Type Department Care Team (Late st Contact Info) Description 12/27/2014 Documentation [facility] Family Medicine [address] [place] [address] Family Medicine, Physician [address] [place] [address] Social History Tobacco Use Types Packs/Day Years [...] on filedocumented in this encounter Care Teams Business Support Manager Relationship Specialty Start Date End Date Brandie Huang MD [address] [place] [address] [place] [address] PCP - General 04/30/17 11/12/22 documented as of this encounter
--- OUTSIDE RECORDS SUMMARY | 2024-12-26 18:59 | XMS_ITS | Encounter Summary ---
Author Organization [facility] Address [address] [place] [address] Phone Care Team Providers Care Ceramics Machine Operator Name Role Phone Brandie Huang MD Primary Care Provider +1- [phone] Encounter Details Date Type Department Care Team (Late st Contact Info) Description 12/02/2012 Documentation [facility] Family Medicine [address] [place] [address] Family Medicine, Physician [address] [place] [address] Social History Tobacco Use Types Packs/Day Years [...] on filedocumented in this encounter Care Teams Ceramics Machine Operator Relationship Specialty Start Date End Date Brandie Huang MD [address] [place] [address] [place] [address] PCP - General 04/30/17 11/12/22 documented as of this encounter
--- OUTSIDE RECORDS SUMMARY | 2024-12-26 18:59 | XMS_ITS | Encounter Summary ---
Author Organization [facility] Address [address] [place] [address] Phone Care Team Providers Care Dinkey Operator Slate Name Role Phone Brandie Huang MD Primary Care Provider +1- [phone] Encounter Details Date Type Department Care Team (Late st Contact Info) Description 12/02/2012 Documentation [facility] [place] Family Medicine [address] [place] [address] Family Medicine, Physician [address] [place] [address] Social History Tobacco Use Types Packs/Day Years [...] on filedocumented in this encounter Care Teams Dinkey Operator Slate Relationship Specialty Start Date End Date Brandie Huang MD [address] [place] [address] [place] [address] PCP - General 04/30/17 11/12/22 documented as of this encounter
--- OUTSIDE RECORDS SUMMARY | 2024-12-26 18:59 | XMS_ITS | Clinical Summary ---
Author Organization [facility] Address [address] [place] [address] Phone Care Team Providers Care Claim Examiner Name Role Phone Unavailable Primary Care Provider Unavailabl e Allergies No known active allergies Medications multivitamin tablet tablet Take by mouth. 5 Active triamcinolone 0.1 % creamIndication s:Contact dermatitis and eczema Apply topically 2 (two) times a day as needed for irritation or rash. To mix with 16oz ceraVe at home 80 g 9 Active Active Problems Problem Noted Date Diagnosed Date Contact dermatitis and eczema 03/18/2018 Assessment & Plan (05/05/2019 5:25 PM EDT): Recurrent dry skin patches medial right lower leg - happens more in the summer. Unscented creams help. Instruction given for making fluff - mixing 80gms triamcinolone 0.1% with 16 oz ceraVe cream. Apply small amount 2x per day for 1-2 weeks as needed and apply just CeraVe 2x per day the rest of the time. Consider seeing dermatology if problem worsens. Assessment & Plan (03/18/2018 1:59 PM EDT): Handout given and discussed. Triamcinolone 0.1% ordered - apply 2x per day for 1-2 weeks and then as needed. Immunizations Immunization Administration Dates Next Due DTP 12/24/1998, 8,1997,07/11 DTaP 5 04/27/2002 Hep A, ped/adol 12/26/2014,12/21/2013 Hep B, ped/adol 1997,1997,1997 Hib (PRP-T) 08/22/1998, 8,1997,07/11 IPV 04/27/2002 Influenza Split 07/11/2012,08/04/2010 Influenza, injectable, quadrivalent 09/17/2015 Influenza, injectable, quadr ivalent, preservative free 07/13/2013 Influenza, injectable, trivalent 08/17/2011,07/21,07/26/2008 MMR 05/25/2001,05/16/1998 Meningococcal B Trumenba 05/05/2019,03/18/2018 Meningococcal Conj (Menactra) MCV4P 12/26/2014,1 10/01/2008 OPV 1997,1997,1997 PPD Test 04/18/2018 Td (adult) ([facility]), 5 Lf t etanus toxoid, PF, adsorbed 03/18/2018 Tdap 07/26/2008 Varicella 07/26/2008,05/25/2001 Family History Relation Name Status Comments Father Alive Father: asthma/ allergies/elevated cholesterol/obesity Maternal Grandmother Alive Materna l grandmother: Developmental dislocation of hip Mother Alive Mother: mitral valve prolapse/ migraines Other Family history of Asthma, No family history of *Thrombophilia, Family history of *Heart Disease, Family history of *CVA/Stroke, No family history of *Dental caries, No family history of *Sudden /[place] under 55 Paternal Grandfather Paterna l grandfather: Elevated cholesterol, Diabetes mellitus, Stroke Social History Tobacco Use Types Packs/Day Years Used Date Smoking Tobacco: Never Smokeless Tobacco: Never Comments:Never smoker Alcohol Use Standard Drinks/Week Comments No 0 (1 standard drink = 0.6 oz pur e alcohol) Hunger/Food Answer Date Recorded No 05/05/2019 Stable Housing Answer Date Recorded 0 05/05/2019 Transportation Concerns Answer Date Rec orded No 05/05/2019 Hazards in Home Answer Date Recorded No 05/05/2019 Financing Utilities Answer Date Recorde d No 05/05/2019 Safety at Home Answer Date Recorded No 05/05/2019 Outside Support Answer Date Recorded No 05/05/2019 Understanding Health Concerns Answer Da te Recorded No 05/05/2019 Financing Health Concerns Answer Date R ecorded No 05/05/2019 Missing School or Work Answer Date Walter rded No 05/05/2019 Sex and Gender Information Value Date Recorded Sex Assigned at Not on file Legal Sex Male 5:07 PM EDT Gender Identity Not on file Sexual Orientation Straight 05/05/2019 3: 33 PM EDT Last Filed Vital Signs Vital Sign Reading Time Taken Comments Blood Pressure 119/68 05/05/2019 3:06 PM EDT Pulse 59 05/05/2019 3:06 PM EDT Temperature 36.3 ??C (97.3 ??F) 03/18/2018 1:09 PM ED T Respiratory Rate - - Oxygen Saturation - - Inhaled Oxygen Concentration - - Weight 76.5 kg (168 lb 9.6 oz) 05/05/2019 3:06 P M EDT Height 185.4 cm (6' 1 ) 05/05/2019 3:06 PM EDT Body Mass Index 22.24 05/05/2019 3:06 PM EDT Plan of Treatment Health Maintenance Due Date Last Done Comments Influenza Vaccines (#1) 2024 09/17/20 15, 07/13/2013, 07/11/2012, Additional history exists COVID-19 Vaccine (2023- season) 2024 DTaP,Tdap,and Td Vaccines (8 - Td or Tdap) 03/18/2028 03/18/2018, 07/26/2008, 04/27/2002, Additional history exists Hepatitis B Vaccines Completed 1997, 1997, 1997 HIB Vaccines Completed 08/22/1998, 10/21, 1997, Additional history exists MMR Vaccines Completed 05/25/2001, 05/16/1998 IPV Vaccines Completed 04/27/2002, 10/21, 1997, Additional history exists Varicella Vaccines Completed 07/26/2008, 05/25/2001 Hepatitis A Vaccines Completed 12/26/2014, 12/22/19 14 Meningococcal Vaccine Completed 12/26/2014, 009 Men B Vaccine Completed 05/05/2019, 03/18/2018 HPV Vaccines Aged Out No longer eligi ble based on patient's age to complete this topic Pneumococcal Vaccine Aged Out No long er eligible based on patient's age to complete this topic Insurance [employer]
--- OUTSIDE RECORDS SUMMARY | 2024-12-26 18:59 | XMS_ITS | Encounter Summary ---
Author Organization [facility] Address [address] [place] [address] Phone Care Team Providers Care Switch Operators Supervisor Name Role Phone Brandie Huang MD Primary Care Provider [phone]- [phone] Encounter Details Date Type Department Care Team (Late st Contact Info) Description 05/06/2017 Conversion Encounter [facility] [address] [place] [address] Social History Tobacco Use Types Packs/Day Years [...] on filedocumented in this encounter Care Teams Switch Operators Supervisor Relationship Specialty Start Date End Date Brandie Huang MD [address] [place] [address] PCP - General 04/30/17 11/12/22 documented as of this encounter
--- OUTSIDE RECORDS SUMMARY | 2024-12-26 18:59 | XMS_ITS | Encounter Summary ---
Author Organization [facility] Address [address] [place] [address] Phone Care Team Providers Care Cage Fighter Name Role Phone Brandie Huang MD Primary Care Provider [phone]- [phone] Encounter Details Date Type Department Care Team (Late st Contact Info) Description 12/22/2013 Documentation [facility] [place] [place] Family Medicine [address] [place] [address] Family Medicine, Physician [address] [place] [address] Social History Tobacco Use Types Packs/Day Years [...] on filedocumented in this encounter Care Teams Cage Fighter Relationship Specialty Start Date End Date Brandie Huang MD [address] [place] [address] [place] [address] PCP - General 04/30/17 11/12/22 documented as of this encounter
--- OUTSIDE RECORDS SUMMARY | 2024-12-26 18:59 | XMS_ITS | Encounter Summary ---
Author Organization [facility] Address [address] [place] [address] Phone Care Team Providers Care Banquet Captain Name Role Phone Brandie Huang MD Primary Care Provider +1- [phone] Encounter Details Date Type Department Care Team (Late st Contact Info) Description 02/27/2016 Documentation [facility] [place] [address] [place] [address] Family Medicine, Physician [address] [place] [address] Social History Tobacco Use Types Packs/Day Years [...] on filedocumented in this encounter Care Teams Banquet Captain Relationship Specialty Start Date End Date Brandie Huang MD [address] [place] [address] [place] [address] PCP - General 04/30/17 11/12/22 documented as of this encounter
--- OUTSIDE RECORDS SUMMARY | 2024-12-26 18:59 | XMS_ITS | Encounter Summary ---
Author Organization [facility] Address [address] [place] [address] Phone Care Team Providers Care Call Center Coordinator Name Role Phone Brandie Huang MD Primary Care Provider +1- [phone] Encounter Details Date Type Department Care Team (Late st Contact Info) Description 09/24/2015 Documentation [facility] Family Medicine [address] [place] [address] Family Medicine, Physician [address] [place] [address] Social History Tobacco Use Types Packs/Day Years [...] on filedocumented in this encounter Care Teams Call Center Coordinator Relationship Specialty Start Date End Date Brandie Huang MD [address] [place] [address] [place] [address] PCP - General 04/30/17 11/12/22 documented as of this encounter
--- OUTSIDE RECORDS SUMMARY | 2024-12-26 18:59 | XMS_ITS | Encounter Summary ---
Author Organization [facility] Address [address] [place] [address] Phone Care Team Providers Care Junior Programmer Name Role Phone Brandie Huang MD Primary Care Provider +1- [phone] Encounter Details Date Type Department Care Team (Late st Contact Info) Description 09/22/2011 Documentation [facility] [place] Family Medicine [address] [place] [address] Family Medicine, Physician [address] [place] [address] Social History Tobacco Use Types Packs/Day Years [...] on filedocumented in this encounter Care Teams Junior Programmer Relationship Specialty Start Date End Date Brandie Huang MD [address] [place] [address] [place] [address] PCP - General 04/30/17 11/12/22 documented as of this encounter
--- OUTSIDE RECORDS SUMMARY | 2024-12-26 18:59 | XMS_ITS | Encounter Summary ---
Author Organization [facility] Address [address] [place] [address] Phone Care Team Providers Care Calculator Operator Name Role Phone Brandie Huang MD Primary Care Provider [phone]- [phone] Encounter Details Date Type Department Care Team (Late st Contact Info) Description 2017 Documentation [facility] [place] [address] [place] [address] Family Medicine, Physician [address] [place] [address] Social History Tobacco Use Types Packs/Day Years [...] on filedocumented in this encounter Care Teams Calculator Operator Relationship Specialty Start Date End Date Brandie Huang MD [address] [place] [address] [place] [address] PCP - General 04/30/17 11/12/22 documented as of this encounter
--- OUTSIDE RECORDS SUMMARY | 2024-12-26 18:59 | XMS_ITS | Encounter Summary ---
Author Organization [facility] Address [address] [place] [address] Phone Care Team Providers Care Rubber Compounder Name Role Phone Brandie Huang MD Primary Care Provider +1- [phone] Encounter Details Date Type Department Care Team (Late st Contact Info) Description 07/26/2013 Documentation [facility] [place] [address] [place] [address] Family Medicine, Physician [address] [place] [address] Social History Tobacco Use Types Packs/Day Years [...] on filedocumented in this encounter Care Teams Rubber Compounder Relationship Specialty Start Date End Date Brandie Huang MD [address] [place] [address] [place] [address] PCP - General 04/30/17 11/12/22 documented as of this encounter
--- OUTSIDE RECORDS SUMMARY | 2024-12-26 18:59 | XMS_ITS | Encounter Summary ---
Author Organization [facility] Address [address] [place] [address] Phone Care Team Providers Care Principal Law Clerk Name Role Phone Brandie Huang MD Primary Care Provider [phone]- [phone] Encounter Details Date Type Department Care Team (Late st Contact Info) Description 12/22/2013 Documentation [facility] Family Medicine [address] [place] [address] Family Medicine, Physician [address] [place] [address] Social History Tobacco Use Types Packs/Day Years [...] on filedocumented in this encounter Care Teams Principal Law Clerk Relationship Specialty Start Date End Date Brandie Huang MD [address] [place] [address] [place] [address] PCP - General 04/30/17 11/12/22 documented as of this encounter
--- OUTSIDE RECORDS SUMMARY | 2024-12-26 18:59 | XMS_ITS | Encounter Summary ---
Author Organization [facility] Address [address] [place] [address] Phone Care Team Providers Care Steel Die Printer Name Role Phone Brandie Huang MD Primary Care Provider +1- [phone] Encounter Details Date Type Department Care Team (Late st Contact Info) Description 12/22/2013 Documentation [facility] [place] [address] [place] [address] Family Medicine, Physician [address] [place] [address] Social History Tobacco Use Types Packs/Day Years [...] on filedocumented in this encounter Care Teams Steel Die Printer Relationship Specialty Start Date End Date Brandie Huang MD [address] [place] [address] [place] [address] PCP - General 04/30/17 11/12/22 documented as of this encounter
--- OUTSIDE RECORDS SUMMARY | 2024-12-26 18:59 | XMS_ITS | Encounter Summary ---
Author Organization [facility] Address [address] [place] [address] Phone Care Team Providers Care Silica Filter Operator Name Role Phone Brandie Huang MD Primary Care Provider [phone]- [phone] Encounter Details Date Type Department Care Team (Late st Contact Info) Description 12/27/2014 Documentation [facility] [place] Family Medicine [address] [place] [address] Family Medicine, Physician [address] [place] [address] Social History Tobacco Use Types Packs/Day Years [...] on filedocumented in this encounter Care Teams Silica Filter Operator Relationship Specialty Start Date End Date Brandie Huang MD [address] [place] [address] [place] [address] PCP - General 04/30/17 11/12/22 documented as of this encounter
--- OUTSIDE RECORDS SUMMARY | 2024-12-26 18:59 | XMS_ITS | Encounter Summary ---
Author Organization [facility] Address [address] [place] [address] Phone Care Team Providers Care Radial Arm Saw Operator Name Role Phone Brandie Huang MD Primary Care Provider [phone]- [phone] Encounter Details Date Type Department Care Team (Late st Contact Info) Description 07/27/2014 Documentation [facility] [place] [address] [place] [address] Family Medicine, Physician [address] [place] [address] Social History Tobacco Use Types Packs/Day Years [...] on filedocumented in this encounter Care Teams Radial Arm Saw Operator Relationship Specialty Start Date End Date Brandie Huang MD [address] [place] [address] [place] [address] PCP - General 04/30/17 11/12/22 documented as of this encounter
== END 2024-12-26 17:42 | disposition home or self-care (01) ==
LOC: HO.HMCH 16:20
PROVIDERS: PCP Internal Medicine; Visit Provider Internal Medicine
DX: Z00.00 Encounter for general adult medical examination without abnormal findings (principal); F40.10 Social phobia, unspecified; L60.3 Nail dystrophy; L30.9 Dermatitis, unspecified

== ENCOUNTER → 2024-12-26 16:19 | Outpatient (BNVA) | payer BC, SELFPAY | PROVIDERS: PCP Internal Medicine; Visit Provider Internal Medicine | DX: Z00.00 Encounter for general adult medical examination without abnormal findings (principal); F40.10 Social phobia, unspecified; L60.3 Nail dystrophy; L30.9 Dermatitis, unspecified | CPT/HCPCS: 96127 ==

== ENCOUNTER 2025-03-16 08:09 | Outpatient (REF) | payer BC, SELFPAY ==
--- OUTSIDE RECORDS SUMMARY | 2025-03-16 08:14 | XMS_ITS | Clinical Summary ---
Author Organization [facility] Address [address] [place] [address] Phone Care Team Providers Care Manager New Product Name Role Phone Unavailable Primary Care Provider [...] OPV 1997,1997,1997 PPD Test 04/18/2018 Td (adult) ([facility]), 5 Lf t etanus toxoid, [...] *Dental caries, No family history of *Sudden /[place] under 55 Paternal Grandfather Paterna l grandfather: [...] 61 05/05/2019 3:06 PM EDT Temperature 36.3 C (97.3 F) 03/18/2018 1:09 PM EDT Respiratory Rate - - Oxygen Saturation - [...] 07/13/2013, 07/11/2012, Additional history exists COVID-19 Vaccine ( season) 2024 DTaP,Tdap,and Td Vaccines (8 - [...] patient's age to complete this topic Insurance [email or web address]
[2025-03-16 08:21] LABS: MANUAL DIFF FLAG NO
[2025-03-16 08:54] LABS: Basophils Percent Auto 0.7 % (0-2); Eosinophils Absolute Auto 0.2 X10*3/uL (0.0-0.4); Eosinophils Percent Auto 5.3 % (0-4); Hematocrit 40.8 % (42.0-52.0); Hemoglobin 14.4 g/dl (14.0-18.0); Imm Gran Abs Auto 0.01 X10*3/uL (0.00-0.03); Imm Gran Pct Auto 0.2 % (0.0-0.4); Lymphocytes Absolute Auto 1.9 X10*3/uL (1.2-4.9); Lymphocytes Percent Auto 42.1 % (20-40); Mean Corpuscular HGB Conc 35.3 g/dl (31.0-36.0); Mean Corpuscular Hemoglobin 30.7 pg (27.0-33.0); Mean Platelet Volume 10.4 fL (9.4-12.4); Monocytes Absolute Auto 0.4 X10*3/uL (0.1-1.2); Neutrophils Percent Auto 42.7 % (45-73); Platelet Count 192 X10*3/uL (160-400); Red Blood Count 4.69 X10*6/uL (4.60-5.80); White Blood Count 4.6 X10*3/uL (4.8-10.8)
[2025-03-16 09:32] LABS: Alanine Aminotransferase 19 U/L (0-40); Alkaline Phosphatase 36 U/L (39-117); Anion Gap 9 (12-20); Aspartate Amino Transferase 22 U/L (5-37); Bilirubin Total 0.9 mg/dL (0.0-1.0); Blood Urea Nitrogen 12 mg/dL (9-16); C Reactive Protein < 0.10 mg/dL (< or = 0.50); Calcium 9.6 mg/dL (8.4-10.2); Carbon Dioxide 30 mmol/L (22-29); Chloride 103 mmol/L (96-108); Cholesterol 171 mg/dL (<200); Estimated Glomerular Filt Rate > 60; Glucose Random 88 mg/dL (60-115); HDL Cholesterol 64 mg/dL (>40); LDL Cholesterol Calculated 87 mg/dL (<100); Potassium 3.9 mmol/L (3.3-5.1); Sodium 138 mmol/L (135-145); Total Protein 7.4 g/dL (6.5-8.0); Triglycerides 100 mg/dL (<150)
[2025-03-16 09:37] LABS: Erythrocyte Sedimentation Rate 2 MM/HR (0-15)
[2025-03-16 09:53] LABS: Ferritin 200 ng/mL (20-250); Free T4 (Free Thyroxine) 0.97 ng/dL (0.71-1.85); Thyroid Stimulating Hormone 1.19 uIU/mL (0.32-4.0)
[2025-03-16 10:03] LABS: Folate 13.2 ng/mL (> or = 4.0); Vitamin B12 885 pg/mL (200-900)
== END 2025-03-16 08:10 | disposition home or self-care (01) ==
LOC: HO.LAB 08:09
PROVIDERS: PCP Internal Medicine; Visit Provider Internal Medicine
DX: L60.3 Nail dystrophy (principal); E78.00 Pure hypercholesterolemia, unspecified
CPT/HCPCS: 36415; 80053; 80061; 82607; 82728; 82746; 84439; 84443; 85025; 85652; 86140